=== PATIENT | male | born 1995 | race Caucasian/White ===

== ENCOUNTER 2016-11-15 17:54 | Emergency (ER) | payer MEDICAID | END 2016-11-15 20:35 | disposition home or self-care (01) | LOC: D.ER 17:54 | DX: T22.00XA Burn of unspecified degree of shoulder and upper limb, except wrist and hand, unspecified site, initial encounter (principal); X16.XXXA Contact with hot heating appliances, radiators and pipes, initial encounter; Y93.89 Activity, other specified; Y92.019 Unspecified place in single-family (private) house as the place of occurrence of the external cause ==

== ENCOUNTER 2016-11-17 09:22 | Emergency (ER) | payer MEDICAID | END 2016-11-17 10:45 | disposition home or self-care (01) | LOC: D.ER 09:22 | DX: T22.20XA Burn of second degree of shoulder and upper limb, except wrist and hand, unspecified site, initial encounter (principal); X16.XXXA Contact with hot heating appliances, radiators and pipes, initial encounter; Y93.89 Activity, other specified; Y92.89 Other specified places as the place of occurrence of the external cause; F17.200 Nicotine dependence, unspecified, uncomplicated ==

== ENCOUNTER 2017-01-27 10:02 | Emergency (ER) | payer MEDICAID | END 2017-01-27 11:20 | disposition home or self-care (01) | LOC: D.ER 10:02 | DX: K04.7 Periapical abscess without sinus (principal); K08.89 Other specified disorders of teeth and supporting structures; K02.9 Dental caries, unspecified; F17.200 Nicotine dependence, unspecified, uncomplicated ==

== ENCOUNTER 2017-06-12 20:01 | Emergency (ER) | payer MEDICAID | END 2017-06-12 21:17 | disposition home or self-care (01) | LOC: D.ER 20:01 | DX: K08.89 Other specified disorders of teeth and supporting structures (principal); M77.11 Lateral epicondylitis, right elbow; F17.200 Nicotine dependence, unspecified, uncomplicated; K04.7 Periapical abscess without sinus; M25.521 Pain in right elbow ==

== ENCOUNTER 2017-10-22 10:22 | Emergency (ER) | payer MEDICAID | END 2017-10-22 12:17 | disposition home or self-care (01) | LOC: D.ER 10:22 | DX: S16.1XXA Strain of muscle, fascia and tendon at neck level, initial encounter (principal); V79.9XXA Bus occupant (driver) (passenger) injured in unspecified traffic accident, initial encounter; Y93.89 Activity, other specified; Y92.410 Unspecified street and highway as the place of occurrence of the external cause; M54.2 Cervicalgia; F17.200 Nicotine dependence, unspecified, uncomplicated ==

== ENCOUNTER 2018-02-10 11:00 | Emergency (ER) | payer SELFPAY ==
[~2018-02-10] VITALS: Ht 167.6 cm; Wt 72.7 kg
[2018-02-10 11:07] VITALS: Ht 167.6 cm; Wt 72.7 kg
[2018-02-10 12:14] VITALS: BP 118/72
== END 2018-02-10 12:55 | disposition home or self-care (01) ==
LOC: D.ER 11:00
DX: K02.9 Dental caries, unspecified (principal); K08.89 Other specified disorders of teeth and supporting structures; F17.200 Nicotine dependence, unspecified, uncomplicated

== ENCOUNTER 2019-04-07 16:47 | Emergency (ER) | payer OTHER ==
[~2019-04-07] VITALS: Ht 167.6 cm; Wt 56.8 kg
[2019-04-07 16:54] VITALS: Ht 167.6 cm; Wt 56.8 kg
[2019-04-07] MEDS ORDERED: DILAUDID4 MG PO (17:45)
[2019-04-07 18:03] VITALS: BP 126/83
== END 2019-04-07 18:04 | disposition home or self-care (01) ==
LOC: D.ER 16:47
DX: R07.89 Other chest pain (principal)

== ENCOUNTER 2019-08-23 23:21 | Emergency (ER) | payer OTHER ==
[~2019-08-23] VITALS: Ht 167.6 cm; Wt 63.6 kg
[~2019-08-23 23:21] MED LIST: DILAUDID4 MG PO
[2019-08-23 23:28] VITALS: Ht 167.6 cm; Wt 63.6 kg
[2019-08-24] MEDS ORDERED: PENICILLIN V P500 MG PO (01:10)
[2019-08-24] MEDS ORDERED: TYLENOL W/CODEI1 TAB PO (01:10)
[2019-08-24 01:59] VITALS: BP 126/68
== END 2019-08-24 01:59 | disposition home or self-care (01) ==
LOC: D.ER 23:21
DX: K04.7 Periapical abscess without sinus (principal); K08.89 Other specified disorders of teeth and supporting structures; Z72.0 Tobacco use

== ENCOUNTER 2019-10-29 09:55 | Emergency (ER) | payer SELFPAY ==
[~2019-10-29] VITALS: Ht 162.6 cm; Wt 63.6 kg
[~2019-10-29 09:55] MED LIST changes: +PENICILLIN V P500 MG PO; +TYLENOL W/CODEI1 TAB PO
[2019-10-29 09:59] VITALS: Ht 162.6 cm; Wt 63.6 kg
[2019-10-29] MEDS ORDERED: TYLENOL W/CODEI1 TAB PO (10:46)
[2019-10-29] MEDS ORDERED: MUPIROCIN22 GM TOPICAL (10:46)
[2019-10-29 10:54] VITALS: BP 129/33
== END 2019-10-29 10:55 | disposition home or self-care (01) ==
LOC: D.ER 09:55
DX: S61.512A Laceration without foreign body of left wrist, initial encounter (principal); W26.0XXA Contact with knife, initial encounter; Y93.9 Activity, unspecified; Y92.9 Unspecified place or not applicable